=== PATIENT | female | born 1960 | race Hispanic/Latino ===

== ENCOUNTER → 2019-09-24 | Outpatient (CLI) | payer OTHER | END | disposition home or self-care (01) | LOC: RAH 12:52 | PROVIDERS: ATTEND Internal Medicine Cardiovascular Disease | DX: Z13.6 Encounter for screening for cardiovascular disorders (principal) | CPT/HCPCS: 75571 ==

== ENCOUNTER → 2024-01-17 | Outpatient (CLI) | payer OTHER ==
[2024-01-17 21:56] VITALS: PULSE 72; RESP 10
[2024-01-17 22:30] VITALS: PULSE 68; RESP 16
[2024-01-17 23:00] VITALS: PULSE 68; RESP 16
[2024-01-17 23:30] VITALS: PULSE 64; RESP 16
[2024-01-18] VITALS (11 sets, daily range): PULSE 62–68; RESP 12–16
== END | disposition home or self-care (01) ==
LOC: SLP 20:30
PROVIDERS: ATTEND Internal Medicine
DX: G47.33 Obstructive sleep apnea (adult) (pediatric) (principal); R06.83 Snoring
CPT/HCPCS: 95811